=== PATIENT | female | born 1980 | race Caucasian/White ===

== ENCOUNTER 2022-09-21 05:50 | Day surgery (SDC) | payer BC ==
[~2022-09-21] VITALS: Ht 157.5 cm; Wt 77.1 kg
[2022-09-21] MEDS ORDERED: ACETAMINOPHEN I.V. 1000 MG 100 ML IV ONE (07:58)
[2022-09-21] MEDS ORDERED: LR 1,000 ML IV.SOLN IV ONE (08:14)
[2022-09-21] MEDS ORDERED: ROPIVACAINE HCL/PF 0.2% EPIDURAL 100 ML PLAST..BAG EP ONE (08:14)
[2022-09-21] MEDS ORDERED: CLINDAMYCIN PHOSPHATE 60 ML TOPICAL SOLUTION TP ONE (08:14)
[2022-09-21] MEDS ORDERED: MIDAZOLAM HCL 5 MG/5 ML VIAL IVP ONE (08:14)
[2022-09-21] MEDS ORDERED: ONDANSETRON HCL 4 MG/2 ML VIAL IVP ONE (08:14)
[2022-09-21] MEDS ORDERED: NS IRRIG SOLN 1000 ML IR ONE (08:14)
[2022-09-21] MEDS ORDERED: DEXAMETHASONE SOD PHOSPHATE 4 MG/ML VIAL IVP ONE (08:14)
[2022-09-21] MEDS ORDERED: DESFLURANE 15 MIN GAS INH ONE (08:14)
[2022-09-21] MEDS ORDERED: LIDOCAINE 1% 10 MG/ML, 20 ML MDV INJ ONE (08:14)
[2022-09-21] MEDS ORDERED: BUPIVACAINE /PF 0.25% 30 ML VIAL INJ ONE (08:14)
[2022-09-21] MEDS ORDERED: KETOROLAC TROMETHAMINE 30 MG VIAL IVP ONE (08:14)
[2022-09-21] MEDS ORDERED: SUGAMMADEX SODIUM 200 MG/2 ML VIAL IV ONE (08:14)
[2022-09-21] MEDS ORDERED: CEFAZOLIN 1 GM IVPB PREMIX 50 ML IV ONE (08:14)
[2022-09-21] MEDS ORDERED: FUROSEMIDE 20 MG/2 ML VIAL IVP ONE (08:14)
[2022-09-21] MEDS ORDERED: fentaNYL CITRATE 250 MCG/5 ML AMP IV ONE (08:14)
[2022-09-21] MEDS ORDERED: ROCURONIUM BROMIDE 10 MG/ML (ZEMURON) IV ONE (08:14)
[2022-09-21] MEDS ORDERED: PROPOFOL 200MG/ 20ML VIAL (DIPRIVAN) IV ONE (08:14)
[2022-09-21] MEDS ORDERED: BUPIVACAINE /EPINEPHRINE/PF 0.5% 30 ML VIAL INJ ONE (08:14)
[2022-09-21] MEDS ORDERED: LR 1,000 ML IV SCH (09:15)
[2022-09-21] MEDS ORDERED: MIDAZOLAM HCL 2 MG/2 ML VIAL (VERSED) IVP PRN (09:15)
[2022-09-21] MEDS ORDERED: hydrALAZINE HCL 20 MG/ML VIAL IVP PRN (09:15)
[2022-09-21] MEDS ORDERED: METOCLOPRAMIDE HCL 10 MG/2 ML VIAL IVP PRN (09:15)
[2022-09-21] MEDS ORDERED: LABETALOL 100 MG/ 20ML VIAL IVP PRN (09:15)
[2022-09-21] MEDS ORDERED: HYDROmorphone 1 MG/ML INJ. CARTRIDGE IVP PRN ×2 (09:15)
[2022-09-21] MEDS ORDERED: MEPERIDINE HCL/PF 25 MG/ML DISP.SYRIN IVP PRN (09:15)
[2022-09-21] MEDS ORDERED: OXYCODONE/ACETAMINOPHEN 5-325 TABLET PO PRN ×2 (11:30)
[2022-09-21] MEDS ORDERED: ONDANSETRON HCL 4 MG/2 ML VIAL IVP PRN (11:30)
[2022-09-21] MEDS ORDERED: HYDROcodone/ACETAMIN 5-325 MG TAB (NORCO/ VICODIN) PO PRN (11:30)
[2022-09-21] MEDS ORDERED: HYDROmorphone 1 MG/ML INJ. CARTRIDGE ONE (12:12)
[2022-09-21 13:00] VITALS: BP_SYST 116
[2022-09-21] MEDS ORDERED: ceFAZolin SODIUM 1 GM in D5W 50 ML IV ONE (14:00)
[2022-09-21] MEDS ORDERED: OXYCODONE/ACETAMINOPHEN 5-325 TABLET ONE (15:44)
== END 2022-09-21 13:00 | disposition home or self-care (01) ==
LOC: SMU 05:50 → SDS 05:50
PROVIDERS: ATTEND Specialist
DX: N92.0 Excessive and frequent menstruation with regular cycle (principal); N81.4 Uterovaginal prolapse, unspecified; N39.3 Stress incontinence (female) (male); N81.6 Rectocele; N92.3 Ovulation bleeding; N36.8 Other specified disorders of urethra; I10 Essential (primary) hypertension; E78.5 Hyperlipidemia, unspecified; J45.909 Unspecified asthma, uncomplicated; Z20.822 Contact with and (suspected) exposure to COVID-19; Z79.899 Other long term (current) drug therapy
CPT/HCPCS: 36415 ×2; 58552; 64488; 57260; 51992; 84132; 88302; 88307; U0003; J3490 ×3; J0690 ×2; J1100; J1940; J1885; J2001; J2250; J2405; J2704; J2795; J3010; J1170; J7060; J7120; C1727; C1771; J0131